=== PATIENT | female | born 1995 | race Caucasian/White ===

== ENCOUNTER → 2023-02-23 | Outpatient (CLI) | payer OTHER | LOC: M RAD 06:57 | PROVIDERS: ATTEND Internal Medicine Gastroenterology | DX: R10.10 Upper abdominal pain, unspecified (principal) ==

== ENCOUNTER 2023-05-28 10:58 | Day surgery (SDC) | payer OTHER ==
[~2023-05-28] VITALS: Ht 167.6 cm; Wt 59.4 kg
[~2023-05-28 10:58] MED LIST: NS 1,000 ML IV ONE
[2023-05-28] MEDS ORDERED: fentaNYL 100 MCG/2 ML INJECTION As Ordered ONE (11:50)
[2023-05-28] MEDS ORDERED: propofoL 200 MG/20 ML VIAL As Ordered ONE (11:51)
[2023-05-28] MEDS ORDERED: LIDOCAINE 2% 100MG/5ML SDV (FOR ANES.) As Ordered ONE (11:51)
[2023-05-28 13:21] VITALS: BP 110/64; TEMP 97.3; O2SAT 100
== END 2023-05-28 13:40 | disposition home or self-care (01) ==
LOC: M OPP 10:58
PROVIDERS: ATTEND Internal Medicine Gastroenterology
DX: K29.70 Gastritis, unspecified, without bleeding (principal); K22.89 Other specified disease of esophagus; R10.13 Epigastric pain; Z91.040 Latex allergy status; Z91.048 Other nonmedicinal substance allergy status
CPT/HCPCS: 43239; 88305; J3010

== ENCOUNTER 2024-03-29 17:27 | Emergency (ER) | payer OTHER ==
[~2024-03-29] VITALS: Ht 167.6 cm; Wt 60.4 kg
[2024-03-29 18:22] LABS: BASO % 0.4 % (0.0-1.0); EOS # 0.1 10^3/uL (0.0-0.5); EOS % 0.9 % (0.0-3.0); HEMATOCRIT 38.7 % (36.0-47.0); HEMOGLOBIN 13.3 g/dl (12.0-15.5); LYMPH # 1.8 10^3/uL (1.5-5.0); LYMPH % 17.4 % (24.0-44.0); MEAN CORPUSCULAR HGB CONC 34.4 g/dl (32.0-36.5); MEAN CORPUSCULAR VOLUME 84.3 fl (80.0-96.0); MONO # 0.7 10^3/uL (0.0-0.8); MONO % 6.8 % (2.0-8.0); NEUTROPHILS # 7.8 10^3/uL (1.5-8.5); NEUTROPHILS % 74.2 % (36.0-66.0); PLATELET COUNT, AUTOMATED 230 10^3/uL (150-450); RED BLOOD COUNT 4.59 10^6/uL (4.00-5.40); WHITE BLOOD COUNT 10.5 10^3/uL (4.0-10.0)
[2024-03-29] MEDS: ACETAMINOPHEN 500 MG TAB PO ONE (18:37)
[2024-03-29 18:50] LABS: BLOOD UREA NITROGEN 15 MG/DL (9-23); CALCIUM LEVEL 9.4 MG/DL (8.5-10.1); CARBON DIOXIDE LEVEL 27 MMOL/L (20-31); CHLORIDE LEVEL 110 MMOL/L (98-107); CREATININE FOR GFR 0.69 MG/DL (0.55-1.30); GLOMERULAR FILTRATION RATE > 60.0 (>60); GLUCOSE, FASTING 87 MG/DL (60-100); POTASSIUM SERUM 4.1 MMOL/L (3.5-5.1); SODIUM LEVEL 142 MMOL/L (136-145)
[2024-03-29 18:53] LABS: HCG, SERUM QUALITATIVE NEGATIVE (NEGATIVE)
[2024-03-29 23:02] VITALS: BP 111/71; TEMP 98; O2SAT 98
== END 2024-03-29 23:13 | disposition home or self-care (01) ==
LOC: M ED 17:27
DX: Z04.1 Encounter for examination and observation following transport accident (principal); Z91.89 Other specified personal risk factors, not elsewhere classified; Z91.040 Latex allergy status

== ENCOUNTER → 2024-08-14 | Outpatient (REF) | LOC: M LAB 09:13 | PROVIDERS: ATTEND Family Medicine | DX: Z01.89 Encounter for other specified special examinations (principal) ==

== ENCOUNTER → 2024-11-20 | Outpatient (REF) | LOC: M EMP 12:05 | PROVIDERS: ATTEND Family Medicine | DX: Z01.89 Encounter for other specified special examinations (principal) ==